=== PATIENT | male | born 2005 | race Caucasian/White ===

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

== ENCOUNTER 2025-09-29 14:12 | Emergency (ER) | payer MEDICAID, OTHER ==
[~2025-09-29] VITALS: Ht 172.7 cm; Wt 75.0 kg
[2025-09-29 14:14] VITALS: O2SAT 100
[2025-09-29] MEDS: SODIUM CHLORIDE 0.9% 1,000 ML IV ONE (15:30)
[2025-09-29 16:11] LABS: BASOPHILS % 0.7 % (0.0-2.0); EOSINOPHILS % 1.5 % (0.0-5.0); HEMATOCRIT. 42.3 % (42.0-52.0); HEMOGLOBIN. 14.2 g/dL (14.0-18.0); LYMPHOCYTES % 35.7 % (20.0-50.0); MEAN PLATELET VOLUME 9.8 fl (7.4-10.4); MONOCYTES % 10.0 % (2.0-8.0); NEUTROPHILS % 52.1 % (40.0-76.0); PLATELET 228 x1000/uL (130-400); RED BLOOD CELL COUNT 4.85 mill/uL (4.7-6.1); RED CELL DISTRIBUTION WIDTH 13.5 % (11.6-14.6)
[2025-09-29 16:25] LABS: CREATININE 0.8 mg/dL (0.6-1.3); UREA NITROGEN BLOOD 8 mg/dL (9-23)
[2025-09-29 16:26] LABS: TROPONIN I HIGH SENSITIVITY < 4 ng/L (3.0-53)
[2025-09-29 17:29] VITALS: BP 149/76; PULSE 63; RESP 16; TEMP 36.9; O2SAT 97
== END 2025-09-29 17:38 | disposition home or self-care (01) ==
LOC: ER 17:24 → CMPBEDREQ 09-30 08:26
DX: I31.9 Disease of pericardium, unspecified (principal); Z79.899 Other long term (current) drug therapy
CPT/HCPCS: 99291; 80048; 83735; 85025; 84484; 36415; 71045; 93005; J7030